=== PATIENT | female | born 1960 | race Hispanic/Latino ===

== ENCOUNTER 2018-05-13 12:49 | Emergency (ER) | payer MEDICARE ==
[~2018-05-13 12:49] MED LIST: BIMA12.5OS OD; BISA5TAB PO; BRIM5DRO OP; CALC-21 PO; CARB200T PO; DOCU100C33 PO; FOLI1TAB15 PO; FURO40TA5 PO; LEVO500T2 PO; MULT-723 PO; POTA10CA44 PO
[2018-05-13] MEDS ORDERED: L.E.T. GEL 4%/0.5%/0.18% 3ML 3 ML/SYR SYG TP ONE ×2 (13:08→13:12)
== END 2018-05-13 14:35 | disposition home or self-care (01) ==
LOC: EDH 12:49
DX: S01.81XA Laceration without foreign body of other part of head, initial encounter (principal); W18.39XA Other fall on same level, initial encounter; Y93.89 Activity, other specified; Y92.128 Other place in nursing home as the place of occurrence of the external cause; Y99.8 Other external cause status
CPT/HCPCS: 12011